=== PATIENT | female | born 1940 | race Caucasian/White ===

== ENCOUNTER 2019-04-22 20:17 | Emergency (ER) | payer MEDICARE, OTHER ==
--- NOTE | 2019-04-22 21:23 | ED Physician Documentation ---
PD HPI NVD - Stated complaint Stated Complaint: NAUSEA/ADRIAN POST SURG - Chief complaint Chief Complaint: Abd Pain - History obtained from History obtained from: Patient - History of Present Illness Timing - onset: How many days ago (3) Timing - duration: Days (3) Timing - details: Gradual onset, Still present Associated symptoms: Dizzy, Loss of appetite, Other (diarrhea) Contributing factors: Other (recent surgery) Improved by: BM Worsened by: Eating Similar symptoms before: Diagnosis (IBS) Recently seen: Surgery - Additonal information Additional information: Previously well 78-year-old female with a history of irritable bowel syndrome and aortic stenosis has developed nausea vomiting and diarrhea about 1 week after her surgery on her right knee. She states the surgery has gone well her pain is well controlled she is now developed symptoms consistent with what she has had previously with irritable bowel and when she called the nurse hotline they asked her to come to the emergency department to be certain to be checked for C. difficile. The patient states that she did take some Imodium yesterday and she has not been taking her pain medication for about 4 5 days. She took scant amounts of the pain medication. Review of Systems Constitutional: reports: Fatigue. denies: Fever, Chills Eyes: denies: Decreased vision Ears: denies: Ear pain Nose: denies: Congestion Throat: denies: Sore throat Cardiac: denies: Chest pain / pressure, Palpitations Respiratory: denies: Dyspnea, Cough GI: reports: Nausea, Vomiting, Diarrhea. denies: Abdominal Pain : denies: Dysuria, Frequency Skin: denies: Rash Musculoskeletal: reports: Extremity pain, Joint pain, Extremity swelling. denies: Neck pain, Back pain Neurologic: denies: Generalized weakness, Focal weakness, Numbness PD PAST MEDICAL HISTORY - Past Medical History Cardiovascular: Hypertension Endocrine/Autoimmune: Type 2 diabetes Musculoskeletal: Osteoarthritis, Rheumatoid arthritis - Past Surgical History Past Surgical History: Yes General: Cholecystectomy, Hiatal hernia repair HEENT: Cataracts - Present Medications Home Medications: Ambulatory Orders Medication Instructions Recorded Confirmed Allopurinol [Zyloprim] 200 DAILY 12/17/13 12/17/13 Cyclobenzaprine [Flexeril] 10 mg PO TID PRN #20 tablet 12/17/13 HYDROcod/ACETAM 5/325 [Vicodin 1 - 2 ea PO Q6H PRN #15 tablet 12/17/13 5/325] Losartan Potassium [Cozaar] 100 DAILY 12/17/13 12/17/13 Metformin HCl [Metformin HCl ER] 1,000 BID 12/17/13 12/17/13 RX: Atenolol 100 DAILY 12/17/13 12/17/13 RX: Atorvastatin [Lipitor] 10 DAILY 12/17/13 12/17/13 RX: Nabumetone 500 PRN 12/17/13 12/17/13 RX: amLODIPine [Norvasc] 5 DAILY 12/17/13 12/17/13 hydroCHLOROthiazide [Hydrodiuril] DAILY 12/17/13 12/17/13 - Allergies Allergies/Adverse Reactions: Allergies Allergy/AdvReac Type Severity Reaction Status Date / Time Latex, Natural Rubber Allergy Intermediate Rash Verified 04/22/19 20:25 povidone-iodine Allergy Intermediate Rash Verified 04/22/19 20:25 [From Betadine] soap * [From Betadine] Allergy Intermediate Rash Verified 04/22/19 20:25 Sulfa (Sulfonamide Allergy Intermediate Rash Verified 04/22/19 20:25 Antibiotics) - Social History Does the pt smoke?: No Smoking Status: Never smoker Does the pt drink ETOH?: No Does the pt have substance abuse?: No - Immunizations Immunizations are current?: Yes PD ED PE NORMAL - Vitals Vital signs reviewed: Yes (hypertensive) - General General: Alert and oriented X 3, No acute distress, Well developed/nourished - HEENT HEENT: Atraumatic, PERRL, EOMI - Neck Neck: Supple, no meningeal sign, No bony TTP - Cardiac Cardiac: RRR, Other (2/6 holosystolic murmer at LSB ) - Respiratory Respiratory: No respiratory distress, Clear bilaterally - Abdomen Abdomen: Soft, Non tender - Back Back: No CVA TTP, No spinal TTP - Derm Derm: Normal color, Warm and dry, No rash - Extremities Extremities: No deformity, No edema - Neuro Neuro: Alert and oriented X 3, tanning consultant 2-12 intact, No motor deficit, No sensory deficit, Normal speech Eye Opening: Spontaneous Motor: Obeys Commands Verbal: Oriented GCS Score: 15 - Psych Psych: Normal mood, Normal affect Results - Vitals Vitals: Vital Signs - 24 hr 04/22/19 04/22/19 04/22/19 20:25 22:25 23:35 Temperature 36.5 C Heart Rate 70 57 L 73 Respiratory 16 16 16 Rate Blood Pressure 169/100 H 163/65 H 148/62 H O2 Saturation 97 97 96 04/23/19 00:39 Temperature 36.8 C Heart Rate 81 Respiratory 16 Rate Blood Pressure 156/73 H O2 Saturation 98 Oxygen O2 Source Room air - Labs Labs: Laboratory Tests 04/22/19 04/22/19 04/22/19 21:05 21:30 21:40 WBC 9.6 RBC 3.13 L Hgb 9.5 L Hct 28.8 L MCV 92.0 MCH 30.4 MCHC 33.0 RDW 13.8 Plt Count 312 MPV 9.2 Neut # (Auto) 6.6 Lymph # (Auto) 2.3 Ritchie # (Auto) 0.6 Eos # (Auto) 0.1 Baso # (Auto) 0.0 Absolute Nucleated RBC 0.00 Nucleated RBC % 0.0 Sodium Potassium Chloride Carbon Dioxide Anion Gap BUN Creatinine Estimated GFR (MDRD) Glucose Calcium Total Bilirubin AST ALT Alkaline Phosphatase Total Protein Albumin Globulin Albumin/Globulin Ratio Lipase Urine Color YELLOW Urine Clarity CLEAR Urine pH 5.0 Ur Specific [place] 1.010 Urine Protein NEGATIVE Urine Glucose (UA) NEGATIVE Urine Ketones NEGATIVE Urine Occult Blood NEGATIVE Urine Nitrite NEGATIVE Urine Bilirubin NEGATIVE Urine Urobilinogen 0.2 (NORMAL) Ur Leukocyte Esterase TRACE H Urine RBC 0-5 Urine WBC 6-10 H Ur Squamous Epith Cells MANY Squamous H Urine Bacteria Few Ur Microscopic Review INDICATED Urine Culture Comments NOT INDICATED C. difficile Tox B Gene NEGATIVE 04/22/19 04/22/19 21:40 23:28 WBC RBC Hgb Hct MCV MCH MCHC RDW Plt Count MPV Neut # (Auto) Lymph # (Auto) Ritchie # (Auto) Eos # (Auto) Baso # (Auto) Absolute Nucleated RBC Nucleated RBC % Sodium 136 Potassium 4.5 Chloride 89 L Carbon Dioxide 31 Anion Gap 16.0 H BUN 36 H Creatinine 1.5 H Estimated GFR (MDRD) 34 L Glucose 153 H Calcium 10.0 Total Bilirubin 1.1 H AST 24 ALT 19 Alkaline Phosphatase 73 Total Protein 7.9 Albumin 4.3 Globulin 3.6 Albumin/Globulin Ratio 1.2 Lipase 44 Urine Color YELLOW Urine Clarity CLEAR Urine pH 7.0 Ur Specific [place] <=1.005 Urine Protein NEGATIVE Urine Glucose (UA) NEGATIVE Urine Ketones NEGATIVE Urine Occult Blood NEGATIVE Urine Nitrite NEGATIVE Urine Bilirubin NEGATIVE Urine Urobilinogen 0.2 (NORMAL) Ur Leukocyte Esterase NEGATIVE Urine RBC Urine WBC Ur Squamous Epith Cells Urine Bacteria Ur Microscopic Review NOT INDICATED Urine Culture Comments NOT INDICATED C. difficile Tox B Gene Procedures - IVC sono (time) 2200 Bedside IVC sono: IVC measures (cm) (1.30), IVC collapsed c insp (cm) (complete), Dehydration (est 1liter deficit) PD MEDICAL DECISION MAKING - ED course Complexity details: reviewed results, re-evaluated patient, considered differential, d/w patient, d/w family ED course: 78-year-old female with history of irritable bowel syndrome has recently had her right knee replaced and she has been on a number of medications for this which have triggered her irritable bowel syndrome. She has had diarrhea nausea and vomiting and she feels dehydrated. Here in the emergency department she is found to be dehydrated on interrogation the inferior vena cava and she is administered saline. Initial urine specimen is concerning for infection however this specimen is not admissible for culture as it appears contaminated and a second catheterized specimen is obtained which is clear. Patient has improvement with hydration and the use of Imodium she has no further diarrhea in the emergency department and her C. difficile is negative. Departure - Departure Disposition: 01 Home, Self Care Clinical Impression: Dehydration, Irritable bowel syndrome Instructions: ED Dehydration Follow-Up: Zeenat Anguiano MD [Primary Care Provider] - Discharge Date/Time: 04/23/19 00:40
[2019-04-22] MEDS ORDERED: SODIUM CHLORIDE 0.9% 1,000 ML IV ONE (22:04)
[2019-04-22] MEDS ORDERED: LOPERAMIDE 2 MG CAPSULE PO STA (22:04)
[2019-04-22 22:09] LABS: BASOPHILS % (AUTO) 0.3 %; EOSINOPHILS # (AUTO) 0.1 10^3/uL (0.0-0.7); EOSINOPHILS % (AUTO) 0.8 %; HGB - HEMOGLOBIN 9.5 g/dL (12.0-16.0); LYMPHOCYTES # (AUTO) 2.3 10^3/uL (1.5-3.5); LYMPHOCYTES % (AUTO) 24.2 %; MEAN CORPUSCULAR HEMOGLOBIN 30.4 pg (27.0-31.0); MEAN PLATELET VOLUME 9.2 fL (7.9-10.8); MONOCYTES # (AUTO) 0.6 10^3/uL (0.0-1.0); MONOCYTES % (AUTO) 5.8 %; NEUTROPHILS # (AUTO) 6.6 10^3/uL (1.5-6.6); NEUTROPHILS % (AUTO) 68.3 %; PLT - PLATELET COUNT 312 10^3/uL (130-450); RED BLOOD COUNT 3.13 10^6/uL (4.20-5.40); RED CELL DISTRIBUTION WIDTH 13.8 % (12.0-15.0); WHITE BLOOD COUNT 9.6 x10^3/uL (4.8-10.8)
[2019-04-22 22:19] LABS: BILIRUBIN,URINE NEGATIVE (NEGATIVE); GLUCOSE, URINE (UA) NEGATIVE (NEGATIVE); KETONES,URINE (UA) NEGATIVE (NEGATIVE); LEUKOCYTE ESTERASE, URINE TRACE (NEGATIVE); NITRITE,URINE NEGATIVE (NEGATIVE); OCCULT BLOOD,URINE NEGATIVE (NEGATIVE); PROTEIN,URINE NEGATIVE (NEGATIVE); UROBILINOGEN,URINE 0.2 (NORMAL) E.U./dL (NORMAL)
[2019-04-22 22:21] LABS: CLARITY,URINE CLEAR (CLEAR)
[2019-04-22 22:23] LABS: ALBUMIN 4.3 g/dL (3.2-5.5); ALBUMIN/GLOBULIN RATIO 1.2 (1.0-2.2); BILIRUBIN,TOTAL 1.1 mg/dL (0.2-1.0); CREATININE 1.5 mg/dL (0.4-1.0); TOTAL PROTEIN 7.9 g/dL (6.7-8.2)
[2019-04-22 22:25] LABS: BACTERIA,URINE Few /HPF (None Seen); RBC,URINE 0-5 /HPF (0-5); SQUAMOUS EPITHELIAL CELL,UR MANY Squamous (<= Few)
[2019-04-22 23:35] LABS: BILIRUBIN,URINE NEGATIVE (NEGATIVE); GLUCOSE, URINE (UA) NEGATIVE (NEGATIVE); KETONES,URINE (UA) NEGATIVE (NEGATIVE); LEUKOCYTE ESTERASE, URINE NEGATIVE (NEGATIVE); NITRITE,URINE NEGATIVE (NEGATIVE); OCCULT BLOOD,URINE NEGATIVE (NEGATIVE); PROTEIN,URINE NEGATIVE (NEGATIVE); UROBILINOGEN,URINE 0.2 (NORMAL) E.U./dL (NORMAL)
[2019-04-22 23:36] LABS: CLARITY,URINE CLEAR (CLEAR)
[2019-04-23] MEDS ORDERED: PROMETHAZINE 25 MG TABLET PO STA (00:35)
[2019-04-23 00:40] VITALS: BP 156/73
== END 2019-04-23 00:40 | disposition home or self-care (01) ==
LOC: ED 20:17
DX: K58.0 Irritable bowel syndrome with diarrhea (principal); E86.0 Dehydration; Z96.651 Presence of right artificial knee joint; I35.0 Nonrheumatic aortic (valve) stenosis; I10 Essential (primary) hypertension; E11.9 Type 2 diabetes mellitus without complications; Z79.84 Long term (current) use of oral hypoglycemic drugs
CPT/HCPCS: 36415; 80053; 81001; 81003; 83690; 85025; 87493; 99283; A9270; Q0169; 87086